=== PATIENT | male | born 1960 | race Hispanic/Latino ===

== ENCOUNTER 2021-10-05 07:54 | Emergency (ER) | payer BC ==
[~2021-10-05] VITALS: Ht 185.4 cm; Wt 86.2 kg
[2021-10-05] MEDS ORDERED: HYDROXYZINE HCL25 MG PO (08:17)
== END 2021-10-05 08:24 | disposition home or self-care (01) ==
LOC: FSED 08:05
DX: F41.9 Anxiety disorder, unspecified (principal); I10 Essential (primary) hypertension
CPT/HCPCS: 93005; 99283